=== PATIENT | female | born 1990 | race Caucasian/White ===

== ENCOUNTER 2018-11-24 10:11 | Inpatient (IN) | payer MEDICAID, OTHER ==
[~2018-11-24 10:11] MED LIST: ACETAMINOPHEN 1,000 MG/100 ML INJ IV ONE; CLINDAMYCIN PHOSPHATE 900 MG/6 ML VIAL ONE; DEXAMETHASONE SOD PHOS 4 MG/ML VIAL ONE; FAMOTIDINE 20 MG/2 ML VIAL ONE; LACTATED RINGERS 1,000 ML IV.SOLN IV ONE; LIDOCAINE HCL 2% PF 100MG/5ML VIAL IJ ONE; ONDANSETRON HCL/PF 4 MG/ 2ML VIAL ONE; PROPOFOL 200 MG/20 ML VIAL IV ONE; ROCURONIUM BROMIDE 10 MG/ML 5ML VIAL ONE; SCOPOLAMINE HYDROBROMIDE 1.5MG/72HR PATCH TD ONE; SEVOFLURANE 250 ML LIQUID IH ONE; SUGAMMADEX SODIUM 200 MG/2 ML VIAL IV ONE
[2018-11-24] MEDS ORDERED: FENTANYL CITRATE/PF 250 MCG/5 ML INJ. ONE (10:25)
[2018-11-24] MEDS ORDERED: SCOPOLAMINE HYDROBROMIDE 1.5MG/72HR PATCH TD ONE (10:26)
[2018-11-24] MEDS ORDERED: ENOXAPARIN SODIUM 40 MG/0.4 ML DISP.SYRIN SQ ONE (10:26)
[2018-11-24] MEDS ORDERED: LACTATED RINGERS 1,000 ML IV ONE (10:26)
[2018-11-24] MEDS ORDERED: FAMOTIDINE 20 MG/2 ML VIAL ONE (10:26)
[2018-11-24] MEDS ORDERED: HYDROcodone /APAP 10/325 1 EACH TABLET PO PRN (16:15)
[2018-11-24] MEDS ORDERED: LEVALBUTEROL HCL 1.25 MG/3 ML AMPUL.NEB NEB PRN (16:15)
[2018-11-24] MEDS ORDERED: ONDANSETRON HCL/PF 4 MG/ 2ML VIAL IVP PRN (16:15)
[2018-11-24] MEDS ORDERED: ACETAMINOPHEN 1,000 MG/100 ML INJ IV PRN (16:15)
[2018-11-24] MEDS ORDERED: PROMETHAZINE HCL 25 MG in 0.9 % SODIUM CHLORIDE 50 ML IV PRN (16:15)
--- NOTE | 2018-11-24 16:55 | History and Physical Report ---
History of Present Illnes - History of Present Illness Reason for Visit: S/P Gastric Sleeve History of Present Illness: Patient is a 28-year-old white female who has tried multiple diets and exercise programs with no success. Patient and surgeon decided to proceed with gastric sleeve procedure. Procedure went well without complications- patient will be admitted and monitored s/p surgical intervention. - Past Medical History Cardiac: denies: CHF, HTN Pulmonary: Asthma. 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 denies: Diabetes, Hypothyroidism Dermatology: denies: Eczema Grav: 4 Para: 4 Ab: 0 - Past Surgical History Past Surgical History: (x3), Other (Tooth Extraction), Tonsillectomy, Other (Breast Reduction) - Past Family History Mother Family History: Other (Schizoprenia (has not really been in her life)) Father Family History: Other (Unsure (has not been in her life)) - Past Social History Smoke: No Alcohol: None Drugs: None Lives: With Family (with Jenifer) Domestic Violence: Negative - Health Maintenance Health Maintenance: Influenza Vaccine Influenza Vaccine: Current for this Influenza Season Pneumonia Vaccine: No Resuscitation Status: Resusciation Status Resuscitation Status Full Code - Unable to Obtain History Unable to Obtain: No Review of Systems - Review of Systems Constitutional: negative: Fever, Chills Eyes: negative: pain, vision change ENT: negative: Ear Pain, Nose Pain, Throat Pain Respiratory: negative: Cough, Shortness of Breath Cardiovascular: negative: Chest Pain, Edema Gastrointestinal: Nausea, Abdominal Pain (s/p gastric sleeve). negative: Vomiting Genitourinary: negative: Dysuria Musculoskeletal: Back Pain (chronic) Skin: negative: Rash Neurological: negative: Incoordination, Confusion - Medications/Allergies Allergies/Adverse Reactions: Allergies Allergy/AdvReac Type Severity Reaction Status Date / Time erythromycin base Allergy Verified 11/24/18 16:14 latex Allergy Verified 11/24/18 16:14 Penicillins Allergy Verified 11/24/18 16:14 Home Medications: Home Medications Albuterol Sulfate [Proventil Hfa] 2 inh INH Q6H PRN 11/24/18 Omeprazole 20 mg PO DAILY 11/24/18 Current Inpatient Medications: Current Inpatient Medications Acetaminophen (Ofirmev) 1,000 mg IV Q6H PRN PRN Reason: For Mild Breakthrough Pain Stop: 11/28/18 16:14 Clindamycin Phosphate (Clindamycin-D5w 600 Mg/50 Ml) 600 mg IV Q8 [facility] Stop: 11/25/18 05:01 Enoxaparin Sodium (Lovenox) 40 mg SQ QD [facility] Stop: 12/09/18 10:59 Famotidine (Pepcid) 20 mg IVP BID [facility] Stop: 11/25/18 20:59 Sodium Chloride (Normal Saline) 1,000 mls @ 150 mls/hr IV Q8H [facility] Promethazine HCl 25 mg/ Sodium (Chloride) 51 mls @ 600 mls/hr IV Q6 PRN PRN Reason: Nausea / Vomiting Stop: 11/28/18 16:14 Ketorolac Tromethamine (Toradol) 30 mg IVP Q6 PRN PRN Reason: For Mild Pain Stop: 11/28/18 16:14 Levalbuterol HCl (Xopenex) 1.25 mg NEB Q4 PRN PRN Reason: SOA, Dyspnea, or Wheezing Stop: 11/28/18 16:14 Ondansetron HCl (Zofran 4 Mg/2 Ml) 4 mg IVP Q6H PRN PRN Reason: Nausea / Vomiting Stop: 11/28/18 16:14 Exam - Exam Vital Signs: Vital Signs (72 hours) 11/24/18 11/24/18 16:15 16:44 Temperature 97 F L Pulse Rate [ 78 73 Left] Respiratory 20 20 Rate Blood Pressure 143/92 150/90 [Left Arm] O2 Sat by Pulse 96 96 Oximetry General: Alert, Oriented to Person, Oriented to Place, Oriented to Time, Cooperative, No acute distress HEENT: Atraumatic, PERRLA, Mouth Mucous membr. moist/[place], Nose Mucous membr. moist/[place] Neck: Normal Range of Motion. No: Stridor Lungs: Clear to auscultation, Normal air movement, Speaks full Sentences. No: Wheezes, Rales Cardiovascular: Regular rate, Normal S1, Normal S2, No murmurs Peripheral Edema: None Peripheral Pulses: 2+ Abdomen: Decreased Bowel Sounds. No: Distended, Rigid Integumentary: Normal, [place], Warm, Dry, Other (incision site dressings dry/ intact) Extremities: No cyanosis, No edema, Normal pulses, No tenderness/swelling Neurological: Normal speech, Strength Equal Bilat, Sensation intact Psych/Mental Status: Mental status NL, Mood NL, Appropriate Affect, Intact Judgment Assessment/Plan - Assessment/Plan (1) Asthma Status: Acute Current Visit: No Qualifiers: Asthma severity: mild Asthma persistence: intermittent Asthma complication type: uncomplicated Qualified Code(s): J45.20 - Mild intermittent asthma, uncomplicated Assessment: stable on home meds Plan: Nebulizer ordered if needed (2) Chronic back pain Status: Acute Current Visit: No Qualifiers: Back pain location: low back pain Back pain laterality: bilateral Sciatica presence: without sciatica Qualified Code(s): M54.5 - Low back pain; G89.29 - Other chronic pain Assessment: Stable without medications Plan: Will continue with getting patient up and walking (3) Morbid obesity due to excess calories Status: Acute Current Visit: No Assessment: S/P gastric sleeve (4) S/P gastric surgery Status: Acute Current Visit: No Assessment: LCTA, Incision site dressings are dry and intact, legs are without tenderness/pain, pain and nausea controlled Plan: Plan is to have patient up and walking frequently, SCDs while in bed, and Lovenox to prevent DVTs, using IS frequently to prevent resp illness, PPI IV, IVF until patient can tolerate oral, will monitor incision sites for infection, will monitor VS, lungs, and bowel VTE Assessment - RISK FACTOR SCORE VTE RISK FACTOR SCORES: OBESITY, MAJOR SURGERY/ANESTHESIA TIME > 1 HOUR (Frequent ambulation, SCDs while in bed, and lovenox daily)
[2018-11-24] MEDS: 0.9 % SODIUM CHLORIDE 1,000 ML IV SCH (17:27)
[2018-11-24] MEDS: KETOROLAC TROMETHAMINE 30 MG/1ML VIAL IVP PRN (19:52)
[2018-11-24] MEDS: CLINDAMYCIN PHOSPHATE/D5W 600 MG/50 ML PIGGYBACK IV SCH (21:13)
[2018-11-24] MEDS: FAMOTIDINE 20 MG/2 ML VIAL IVP SCH (21:13)
[2018-11-25] MEDS: 0.9 % SODIUM CHLORIDE 1,000 ML IV SCH ×3 (00:18→11:05)
[2018-11-25] MEDS: KETOROLAC TROMETHAMINE 30 MG/1ML VIAL IVP PRN (03:15)
[2018-11-25] MEDS: CLINDAMYCIN PHOSPHATE/D5W 600 MG/50 ML PIGGYBACK IV SCH (04:13)
[2018-11-25] MEDS: FAMOTIDINE 20 MG/2 ML VIAL IVP SCH (08:31)
--- NOTE | 2018-11-25 09:08 | Inpatient Progress Note ---
Subjective - Required Recertification Statement I anticipate X number of days because-include discharge plan: 1 - Review of Systems Subjective: Patient doing well. Pain controlled. Passing gas. No nausea. Objective - Exam Vitals and I&O: Vital Signs Temp 98.3 F 11/25/18 06:00 Pulse 65 11/25/18 06:00 Resp 16 11/25/18 06:00 BP 131/85 11/25/18 06:00 Pulse Ox 97 11/25/18 06:00 Intake & Output 11/24/18 11/24/18 11/25/18 11:59 23:59 11:59 Intake Total 930 1200 Output Total 300 400 Balance 630 800 Weight 144.821 kg Intake: IV 750 1200 Right Antecubital 750 1200 Oral 180 Output: Urine 300 400 Other: Voiding Method Toilet Toilet # Voids 1 General: Alert, Oriented to Person, Oriented to Place, Oriented to Time, Cooperative, No acute distress Lungs: Clear to auscultation, Normal air movement, Speaks full Sentences Cardiovascular: Regular rate Abdomen: Normal bowel sounds, Soft, No tenderness, Other (Bandages C/D/I) Assessment/Plan - Assessment/Plan (1) Asthma Status: Acute Current Visit: No Qualifiers: Asthma severity: mild Asthma persistence: intermittent Asthma complication type: uncomplicated Qualified Code(s): J45.20 - Mild intermittent asthma, uncomplicated Plan: No problems today. Xopenex if needed. (2) S/P gastric surgery Status: Acute Current Visit: No Plan: Continue ambulation, SCD's, IS, and lovenox.
[2018-11-25] MEDS ORDERED: ENOXAPARIN SODIUM 40 MG/0.4 ML DISP.SYRIN SQ SCH (11:00)
[2018-11-25] MEDS ORDERED: MAG HYDROX/ALUMINUM HYD/SIMETH 30 ML UDC PO ONE (16:25)
[2018-11-25] MEDS ORDERED: PROMETHAZINE HCL 25 MG/ML VIAL IM PRN (16:27)
[2018-11-25] MEDS ORDERED: ONDANSETRON HCL 4 MG TAB.RAPDIS PO PRN (16:29)
[2018-11-25] MEDS: KETOROLAC TROMETHAMINE 30 MG/1ML VIAL IM SCH ×2 (16:56→17:16)
[2018-11-25] MEDS: FAMOTIDINE 20 MG TABLET PO SCH (16:57)
[2018-11-25] MEDS ORDERED: KETOROLAC TROMETHAMINE 60 MG/2 ML VIAL ONE (17:05)
[2018-11-25 22:37] VITALS: BMI 120.6
[2018-11-26] MEDS: KETOROLAC TROMETHAMINE 30 MG/1ML VIAL IM SCH ×2 (00:02→06:15)
[2018-11-26] MEDS: FAMOTIDINE 20 MG TABLET PO SCH (06:15)
--- NOTE | 2018-11-26 07:38 | Discharge Summary ---
Discharge Summary - Discharge Sumary History of Present Illness: Patient is a 28-year-old white female who has tried multiple diets and exercise programs with no success. Patient and surgeon decided to proceed with gastric sleeve procedure. Procedure went well without complications- patient will be admitted and monitored s/p surgical intervention. Condition at Discharge: Stable Home Medications: Ambulatory Orders Medication Instructions Recorded Albuterol Sulfate [Proventil Hfa] 2 inh INH Q6H PRN 11/24/18 Omeprazole 20 mg PO DAILY 11/24/18 Consultations this Visit: None Procedures this Visit: None Allergies/Adverse Reactions: Allergies Allergy/AdvReac Type Severity Reaction Status Date / Time erythromycin base Allergy Verified 11/24/18 16:14 latex Allergy Verified 11/24/18 16:14 Penicillins Allergy Verified 11/24/18 16:14 Hospital Course: Patient did well post operatively. SCD, IS, ambulation, lovenox utilized. No problems with asthma. Tolerated and advanced diet. Discharged in good condition.
[2018-11-26 08:51] VITALS: BP 140/72
== END 2018-11-26 11:05 | disposition home or self-care (01) | DRG 621 ==
LOC: SOUTH 10:11 → UNDOADMIN 16:09 → SOUTH 16:09 → UNDODISIN 11-26 11:05
PROVIDERS: ADMIT Nurse Practitioner Family; ATTEND Nurse Practitioner Family
DX: E66.01 Morbid (severe) obesity due to excess calories (principal); Z68.43 Body mass index [BMI] 50.0-59.9, adult; M54.5 Low back pain; J45.20 Mild intermittent asthma, uncomplicated
CPT/HCPCS: 43235; 81025; 99231; 99238; J1100; J1650; J1885; J2001; J2405; J2704; 43775; A9270-GY; J7030; J7120